=== PATIENT | female | born 1935 | race Caucasian/White ===

== ENCOUNTER 2020-01-13 13:09 | Inpatient (IN) ==
[2020-01-13 14:20] LABS: Basophils # 0.1 K/mcL (0.0-0.2); Basophils % 0.8 %; Eosinophils # 0.2 K/mcL (0.0-0.6); Eosinophils % 2.1 %; Hematocrit 41.1 % (35.3-44.9); Hemoglobin 13.1 g/dL (11.5-15.4); Immature Granulocytes % 0.3 % (0-4); Lymphocytes # 2.2 K/mcL (0.6-4.6); Lymphocytes % 30.1 %; Mean Corpuscular HGB Conc 31.9 g/dL (31.6-35.5); Mean Corpuscular Hemoglobin 27.6 pg (28.0-33.3); Mean Corpuscular Volume 86.5 fL (83.0-100.0); Mean Platelet Volume 10.4 fL (9.4-12.4); Monocytes # 0.7 K/mcL (0.0-1.3); Monocytes % 10.4 %; Platelet Count 214 K/mcL (140-400); Red Blood Count 4.75 M/mcL (3.82-4.97); Red Cell Distribution Width 14.4 % (11.5-14.5); Segmented Neutrophils % 56.3 %; White Blood Count 7.1 K/mcL (4.3-11.1)
[2020-01-13 14:27] LABS: Prothrombin Time 11.2 Seconds (9.4-12.1)
[2020-01-13 14:30] LABS: Activated Partial Thrombo Time 28.7 Seconds (26.0-36.0)
[2020-01-13 14:43] LABS: BUN/Creatinine Ratio 33 (6-26); Blood Urea Nitrogen 26 mg/dL (8-23); Calcium 9.4 mg/dL (8.6-10.3); Carbon Dioxide 29 mEq/L (23-29); Chloride 104 mEq/L (98-107); Glucose 102 mg/dL (70-105); Magnesium 1.9 mg/dL (1.6-2.6); Osmolality,Calculated 297 (280-300); Potassium 3.8 mEq/L (3.5-5.1); Sodium 141 mEq/L (136-145); Troponin I < 0.03 ng/mL (< 0.04); eGFR For African Americans > 60 (> 60); eGFR For Non-African Americans > 60 (> 60)
[2020-01-13 14:57] LABS: Thyroid Stimulating Hormone 2.474 mcIU/mL (0.340-5.600)
[2020-01-13] MEDS ORDERED: Ondansetron 4 MG/2 ML VIAL IVP PRN (15:25)
[2020-01-13] MEDS ORDERED: Naloxone 0.4 MG/ML INJ IVP PRN (15:25)
[2020-01-13] MEDS ORDERED: Perflutren Lipid Microsphere 1.3 ML in 0.9 % Sodium Chloride 8.7 ML IVP PRN (15:31)
[2020-01-14] MEDS: *HR* Enoxaparin 40 MG/0.4 ML SYRINGE SQ SCH (05:20)
[2020-01-14] MEDS: Ascorbic Acid 500 MG TABLET PO SCH (08:00)
[2020-01-14] MEDS: (Mirabegron [Myrbetriq] 50 MG) PO SCH (08:02)
[2020-01-14] MEDS: Losartan/HCTZ 50-12.5 TABLET PO SCH (13:22)
[2020-01-15] MEDS: *HR* Enoxaparin 40 MG/0.4 ML SYRINGE SQ SCH (05:02)
[2020-01-15] MEDS: Losartan/HCTZ 50-12.5 TABLET PO SCH (09:24)
[2020-01-15] MEDS: Ascorbic Acid 500 MG TABLET PO SCH (09:24)
[2020-01-15] MEDS: (Mirabegron [Myrbetriq] 50 MG) PO SCH (09:25)
[2020-01-16 01:22] LABS: Basophils # 0.1 K/mcL (0.0-0.2); Eosinophils # 0.2 K/mcL (0.0-0.6); Hematocrit 39.1 % (35.3-44.9); Hemoglobin 12.7 g/dL (11.5-15.4); Immature Granulocytes % 0.4 % (0-4); Mean Corpuscular HGB Conc 32.5 g/dL (31.6-35.5); Mean Corpuscular Hemoglobin 27.9 pg (28.0-33.3); Mean Corpuscular Volume 85.7 fL (83.0-100.0); Monocytes # 0.9 K/mcL (0.0-1.3); Monocytes % 12.2 %; Neutrophils # 3.4 K/mcL (1.6-8.9); Platelet Count 190 K/mcL (140-400); Red Blood Count 4.56 M/mcL (3.82-4.97); Red Cell Distribution Width 14.5 % (11.5-14.5); Segmented Neutrophils % 44.4 %; White Blood Count 7.7 K/mcL (4.3-11.1)
[2020-01-16 01:33] LABS: BUN/Creatinine Ratio 38 (6-26); Blood Urea Nitrogen 29 mg/dL (8-23); Calcium 8.8 mg/dL (8.6-10.3); Carbon Dioxide 24 mEq/L (23-29); Chloride 106 mEq/L (98-107); Glucose 82 mg/dL (70-105); Osmolality,Calculated 293 (280-300); Potassium 3.5 mEq/L (3.5-5.1); Sodium 139 mEq/L (136-145); eGFR For African Americans > 60 (> 60); eGFR For Non-African Americans > 60 (> 60)
[2020-01-16] MEDS: (Mirabegron [Myrbetriq] 50 MG) PO SCH (08:03)
[2020-01-16] MEDS: Losartan/HCTZ 50-12.5 TABLET PO SCH (08:10)
[2020-01-16] MEDS: Ascorbic Acid 500 MG TABLET PO SCH (08:10)
[2020-01-16] MEDS ORDERED: CeFAZolin Syr 2,000MG/20 ML 2,000 MG/20 ML SYRINGE IVPB ONE (09:01)
[2020-01-16] MEDS ORDERED: 0.9 % Sodium Chloride 500 ML ONE (10:41)
[2020-01-16] MEDS ORDERED: *HR* Midazolam HCl 2 MG/2 ML VIAL ONE (10:41)
[2020-01-16] MEDS ORDERED: *HR* FentaNYL (PF) 100 MCG/2 ML VIAL ONE (10:41)
[2020-01-16] MEDS ORDERED: 0.9 % Sodium Chloride 1,000 ML ONE (11:05)
[2020-01-16] MEDS ORDERED: Acetaminophen 325 MG TABLET PO PRN (12:08)
[2020-01-16] MEDS: Acetaminophen 325 MG TABLET PO PRN ×2 (13:05→19:13)
[2020-01-16] MEDS: CeFAZolin 2 GM/120 ML BAG IVPB SCH (19:10)
[2020-01-17] MEDS: Acetaminophen 325 MG TABLET PO PRN ×2 (01:32→08:55)
[2020-01-17] MEDS: CeFAZolin 2 GM/120 ML BAG IVPB SCH (01:32)
[2020-01-17 02:13] LABS: Basophils # 0.1 K/mcL (0.0-0.2); Basophils % 0.6 %; Eosinophils # 0.2 K/mcL (0.0-0.6); Eosinophils % 1.9 %; Hematocrit 41.9 % (35.3-44.9); Hemoglobin 13.8 g/dL (11.5-15.4); Immature Granulocytes % 0.3 % (0-4); Lymphocytes % 29.8 %; Mean Corpuscular HGB Conc 32.9 g/dL (31.6-35.5); Mean Corpuscular Hemoglobin 27.9 pg (28.0-33.3); Mean Corpuscular Volume 84.8 fL (83.0-100.0); Mean Platelet Volume 10.8 fL (9.4-12.4); Monocytes # 1.1 K/mcL (0.0-1.3); Monocytes % 11.1 %; Neutrophils # 5.6 K/mcL (1.6-8.9); Platelet Count 201 K/mcL (140-400); Red Blood Count 4.94 M/mcL (3.82-4.97); Red Cell Distribution Width 14.5 % (11.5-14.5); Segmented Neutrophils % 56.3 %; White Blood Count 9.9 K/mcL (4.3-11.1)
[2020-01-17 02:32] LABS: BUN/Creatinine Ratio 30 (6-26); Blood Urea Nitrogen 20 mg/dL (8-23); Calcium 9.4 mg/dL (8.6-10.3); Carbon Dioxide 25 mEq/L (23-29); Chloride 104 mEq/L (98-107); Glucose 89 mg/dL (70-105); Osmolality,Calculated 288 (280-300); Potassium 3.5 mEq/L (3.5-5.1); Sodium 138 mEq/L (136-145); eGFR For African Americans > 60 (> 60); eGFR For Non-African Americans > 60 (> 60)
[2020-01-17 02:33] LABS: BUN/Creatinine Ratio 30 (6-26); Blood Urea Nitrogen 20 mg/dL (8-23); Carbon Dioxide 25 mEq/L (23-29); Chloride 105 mEq/L (98-107); Potassium 3.5 mEq/L (3.5-5.1); Sodium 139 mEq/L (136-145); eGFR For African Americans > 60 (> 60); eGFR For Non-African Americans > 60 (> 60)
[2020-01-17 07:02] VITALS: BP 143/68
[2020-01-17] MEDS: Ascorbic Acid 500 MG TABLET PO SCH (08:51)
[2020-01-17] MEDS: Losartan/HCTZ 50-12.5 TABLET PO SCH (08:51)
[2020-01-17] MEDS: (Mirabegron [Myrbetriq] 50 MG) PO SCH (11:34)
== END 2020-01-17 12:31 | disposition home or self-care (01) | DRG 244 ==
LOC: 3BNU 13:09 → EMEROOARM 13:09 → SUATTDRO 15:37 → 3BNU 17:15
PROVIDERS: ADMIT Internal Medicine; ATTEND Internal Medicine